=== PATIENT | male | born 1985 | race Asian ===

== ENCOUNTER 2024-05-04 19:50 | Emergency (ER) | payer OTHER ==
[~2024-05-04] VITALS: Ht 165.1 cm; Wt 75.0 kg
[2024-05-05] MEDS ORDERED: METH-1164 PO (00:35)
[2024-05-05] MEDS: KETOROLAC 60MG 2ML VIAL IM ONE (00:48)
[2024-05-05 00:52] VITALS: BP 135/84; TEMP 98; O2SAT 98
== END 2024-05-05 01:00 | disposition home or self-care (01) ==
LOC: M ED 19:50 → EDBD 19:50 → M ED 05-05 01:00
DX: M54.50 Low back pain, unspecified (principal); M62.830 Muscle spasm of back; M25.78 Osteophyte, vertebrae; V49.50XA Passenger injured in collision with unspecified motor vehicles in traffic accident, initial encounter; Y92.410 Unspecified street and highway as the place of occurrence of the external cause; Y93.89 Activity, other specified; Y99.9 Unspecified external cause status; Z79.899 Other long term (current) drug therapy
CPT/HCPCS: 72128; 72131; 96372; 99283; J1885